=== PATIENT | male | born 1950 | race Caucasian/White ===

== ENCOUNTER 2022-05-16 17:05 | Observation (INO) | payer MEDICARE, OTHER ==
[~2022-05-16] VITALS: Ht 182.9 cm; Wt 91.0 kg
[2022-05-16 18:30] VITALS: BP 168/87; PULSE 61; TEMP 98.4
[2022-05-16] MEDS ORDERED: BENICAR HCT 12.1 TA1 PO (19:23)
[2022-05-16] MEDS ORDERED: MITIGARE0.6 MG PO (19:27)
[2022-05-16] MEDS ORDERED: ANTIVERT 25MG25 MG PO (19:28)
[2022-05-16] MEDS ORDERED: ZOFRAN 4MG T4 MG/TAB PO (19:29)
[2022-05-16] MEDS ORDERED: ROLAIDS ULTRA PO (19:32)
[2022-05-16] MEDS ORDERED: SIMETHICONE80 MG PO (19:33)
[2022-05-16 21:14] VITALS: BP 152/72; PULSE 69; TEMP 98.5
[2022-05-16 23:11] VITALS: BP 152/81; PULSE 69; TEMP 98.6
[2022-05-17 05:10] VITALS: BP 149/80; PULSE 63; TEMP 98.5
[2022-05-17 06:38] LABS: BASO % 0.5 % (0.0-2.0); EOS # 0.1 K/mm3 (0.0-0.7); EOS % 1.7 % (0.0-4.0); GRAN # 3.4 K/mm3 (1.4-6.5); GRAN % 57.5 % (42.2-75.2); HEMATOCRIT 42.9 % (42.0-52.0); HEMOGLOBIN 15.2 g/dl (13.5-18.0); LYMPH # 1.8 K/mm3 (1.2-3.4); MEAN CELL VOLUME 82 fl (80.0-100.0); MEAN CORPUSCULAR HEMOGLOBIN 29 pg (27-31); MEAN CORPUSCULAR HGB CONC 35 g/dl (33.0-37.0); MEAN PLATELET VOLUME 9.4 fl (7.4-10.4); MONO # 0.6 K/mm3 (0.1-0.6); MONO % 10.1 % (1.7-9.3); PLATELET COUNT 165 K/mm3 (130-400); RED BLOOD COUNT 5.23 M/mm3 (4.20-5.60); REDCELL DISTRIBUTION WIDTH-CV 13.7 % (11.5-14.5)
[2022-05-17 06:56] LABS: CREATININE, serum 1.33 mg/dL (0.72-1.25); MAGNESIUM 1.9 mg/dL (1.6-2.6); POTASSIUM 3.4 mmol/L (3.5-4.5)
[2022-05-17 08:06] VITALS: BP 152/80; PULSE 57; TEMP 98.2
--- NOTE | 2022-05-17 11:18 | NUR ---
SHIFT ASSESSMENT COMPLETED AND MORNING MEDICATIONS ADMINISTERED PER ORDER. PATIENT IS ALERT AND ORIENTED X4. DENIES PAIN. MRI THIS MORNING. HR LOW, ELIZABETH MCGILL UPDATED, WILL HOLD AM CARDIAC MEDS FOR NOW. DENIES NEEDS AT THIS TIME. NS RUNNING AT 75, TOLERATING WELL. CALL LIGHT WITHIN REACH.
[2022-05-17 11:46] VITALS: BP 140/64; PULSE 70; TEMP 98.2
--- NOTE | 2022-05-17 11:54 | NUR ---
NICOLASA met with the patient to discuss discharge plan. The patient lives alone in [place]. He states that he has siblings that live nearby. He reports that he is normally independent with ADLs and has a stilt walker and wheelchair. He shares that he has been needing more help lately, but has been managing. The patient's PCP is Dr. Malachi Nunes and he receives his medications from [facility]. The patient does not have a DPOA-HC, but he was interested in completing one while here. NICOLASA provided the form. The patient designated his brother, Gilberto Carmona (ph#[phone]), and then his sister, Caroline Acharya (ph#[phone]), as the alternate. NICOLASA and CAROLINE Terrell, witnessed the patient's signature. NICOLASA provided the patient with the original and some copies. NICOLASA placed a copy in the patient's chart. The patient is observation status. PT is recommending to consider IPR. NICOLASA discussed this with the patient. The patient is interested in IPR. NICOLASA consulted IPR. Awaiting screen. *Discharge plan: Possibly IPR*
[2022-05-17 16:22] VITALS: BP 155/74; PULSE 58; TEMP 97.6
[2022-05-17] MEDS ORDERED: PLAVIX 75MG TAB75 MG PO (16:57)
[2022-05-17] MEDS ORDERED: ASPIRIN 81M81 MG/TA2 PO (16:58)
[2022-05-17] MEDS ORDERED: LIPITOR 40MG TA40 MG PO (16:58)
--- NOTE | 2022-05-17 17:26 | NUR ---
PATIENT UP IN BED AT THIS TIME. DENIES ANY NEEDS. IVF DISCONTINUED PER DR. MARCUS. NEUROS WNL. CALL LIGHT WITHIN REACH, BED ALARM ON.
[2022-05-17 19:53] VITALS: BP 141/71; PULSE 67; TEMP 98.8
--- NOTE | 2022-05-17 22:21 | NUR ---
Patient assessed around 2039. Denies pain and discomfort. Used walker to ambulate to and from bathroom with stand by assist. Voices no questions, needs, or concerns at this time. In bed with call light within reach. Bed alarm on.
[2022-05-17 23:29] VITALS: BP 144/72; PULSE 69; TEMP 98.6
[2022-05-18 03:28] VITALS: BP 167/81; PULSE 61; TEMP 98
[2022-05-18 05:57] LABS: BASO % 0.6 % (0.0-2.0); EOS # 0.1 K/mm3 (0.0-0.7); EOS % 2.6 % (0.0-4.0); GRAN # 2.8 K/mm3 (1.4-6.5); GRAN % 56.9 % (42.2-75.2); HEMATOCRIT 38.4 % (42.0-52.0); HEMOGLOBIN 13.6 g/dl (13.5-18.0); LYMPH # 1.4 K/mm3 (1.2-3.4); LYMPH % 28.5 % (20.0-51.0); MEAN CELL VOLUME 82 fl (80.0-100.0); MEAN CORPUSCULAR HEMOGLOBIN 29 pg (27-31); MEAN CORPUSCULAR HGB CONC 35 g/dl (33.0-37.0); MEAN PLATELET VOLUME 9.3 fl (7.4-10.4); MONO # 0.6 K/mm3 (0.1-0.6); PLATELET COUNT 140 K/mm3 (130-400); RED BLOOD COUNT 4.71 M/mm3 (4.20-5.60); REDCELL DISTRIBUTION WIDTH-CV 13.7 % (11.5-14.5)
--- NOTE | 2022-05-18 06:02 | NUR ---
Patient has denied pain and discomfort this shift. Has been calling for assistance, SBA with walker. Voices no questions, needs, or concerns at this time. In bed with call light within reach.
[2022-05-18 06:18] LABS: CALCIUM 9.7 mg/dL (8.4-10.2); CHOLESTEROL RISK RATIO 6.6; CREATININE, serum 1.08 mg/dL (0.72-1.25); POTASSIUM 3.4 mmol/L (3.5-4.5)
[2022-05-18 07:52] VITALS: BP 151/89; PULSE 62; TEMP 97.9
[2022-05-18 07:54] VITALS: BP 159/90; PULSE 68
[2022-05-18 07:57] VITALS: BP 149/85; PULSE 65
--- NOTE | 2022-05-18 09:59 | NUR ---
Camilla, I[facility] Director, reports that they can accept the patient. The patient is to discharge today, 05/18, to [facility]. No additional needs at this time.
--- NOTE | 2022-05-18 10:39 | NUR ---
SHIFT ASSESSMENT COMPLETED AND MORNING MEDICATIONS ADMINISTERED PER ORDER. PATIENT IS ALERT AND ORIENTED X4. DENIES PAIN. LUNGS CTA. NEUROS WNL. ORTHOS COMPLETED AND CHARTED. PLAN TO DISCHARGE TO [facility] TODAY. DENIES ANY NEEDS. CALL LIGHT WITHIN REACH.
--- NOTE | 2022-05-18 11:18 | NUR ---
PATIENT TRANSFERED TO [facility] PER ORDER. IV TO RIGHT ARM DISCONTINUED WITH CATHETER INTACT. BLEEDING TO AREA NOTED, PRESSURE APPLIED AND GAUZE DRESSING APPLIED. PATIENT'S BELONGINGS SENT WITH PATIENT. MED LIST AND DISCHARGE PAPERWORK SENT WITH PATIENT. REPORT GIVEN TO EDMUNDO HAYWOOD.
== END 2022-05-18 11:10 ==
LOC: MEDICAL 17:05
PROVIDERS: Student in an Organized Health Care Education/Training Program; ADMIT Hospitalist
DX: I63.89 Other cerebral infarction (principal); I50.32 Chronic diastolic (congestive) heart failure; I11.0 Hypertensive heart disease with heart failure; M10.9 Gout, unspecified; E87.6 Hypokalemia; I35.1 Nonrheumatic aortic (valve) insufficiency; Z79.899 Other long term (current) drug therapy
CPT/HCPCS: A9575; G0378; G0379; J1644; J7030

== ENCOUNTER → 2022-06-27 | Outpatient (CLI) | payer MEDICARE, OTHER ==
[~2022-06-27] MED LIST: ANTIVERT 25MG25 MG PO; ASPIRIN 81M81 MG/TA2 PO; BENICAR HCT 12.1 TA1 PO; LIPITOR 40MG TA40 MG PO; MITIGARE0.6 MG PO; PLAVIX 75MG TAB75 MG PO; ROLAIDS ULTRA PO; SIMETHICONE80 MG PO; ZOFRAN 4MG T4 MG/TAB PO
== END ==
LOC: MHCPAIN 11:01
DX: M25.562 Pain in left knee (principal); G46.4 Cerebellar stroke syndrome
CPT/HCPCS: G0463

== ENCOUNTER → 2022-06-27 | Outpatient (CLI) | payer MEDICARE, OTHER | LOC: COL.RAD 12:52 | DX: M17.0 Bilateral primary osteoarthritis of knee (principal) ==

== ENCOUNTER → 2022-07-10 | Outpatient (CLI) | payer MEDICARE, OTHER | LOC: MHCPAIN 13:01 | DX: M25.562 Pain in left knee (principal); M17.0 Bilateral primary osteoarthritis of knee | CPT/HCPCS: J3301 ==

== ENCOUNTER → 2022-12-26 | Outpatient (CLI) | payer MEDICARE, OTHER | LOC: MHCPAIN 10:31 | DX: M17.0 Bilateral primary osteoarthritis of knee (principal); M25.561 Pain in right knee; M25.562 Pain in left knee | CPT/HCPCS: G0463 ==

== ENCOUNTER → 2023-02-06 | Outpatient (CLI) | payer MEDICARE, OTHER | LOC: MHCPAIN 09:58 | DX: M17.0 Bilateral primary osteoarthritis of knee (principal) | CPT/HCPCS: G0463 ==

== ENCOUNTER → 2023-05-22 | Outpatient (CLI) | payer MEDICARE, OTHER ==
[~2023-05-22] MED LIST changes: +HYALURONATE SODIUM IU ONE
== END ==
LOC: MHCPAIN 10:07
DX: M17.0 Bilateral primary osteoarthritis of knee (principal)
CPT/HCPCS: J7326

== ENCOUNTER → 2023-08-21 | Outpatient (CLI) | payer MEDICARE, OTHER ==
[~2023-08-21] MED LIST changes: -HYALURONATE SODIUM IU ONE
== END ==
LOC: MHCPAIN 10:28
DX: M17.0 Bilateral primary osteoarthritis of knee (principal)
CPT/HCPCS: G0463